=== PATIENT | male | born 1970 | race Caucasian/White ===

== ENCOUNTER 2025-04-01 11:20 | Outpatient (CLI) | payer OTHER, SELFPAY ==
[2025-04-01 20:33] LABS: Thyroid Stimulating Hormone 3.450 uIU/mL (0.465-4.680)
[2025-04-02 16:08] LABS: Deamidated Gliadin Abs, IgA 7 units (0-19); Deamidated Gliadin Abs, IgG 1 units (0-19); Immunoglobulin A, Qn 415 mg/dL (90-386)
== END 2025-04-01 11:21 | disposition home or self-care (01) ==
LOC: ANHGOSHLAB 11:22
PROVIDERS: PCP Family Medicine; Visit Provider Family Medicine
DX: Z11.59 Encounter for screening for other viral diseases (principal); R94.6 Abnormal results of thyroid function studies; R14.0 Abdominal distension (gaseous)
CPT/HCPCS: 36415; 82784; 84443; 86231; 86258; 86376; 86803